=== PATIENT | male | born 1955 | race Caucasian/White ===

== ENCOUNTER → 2017-02-12 | Outpatient (CLI) | payer BC ==
[~2017-02-12] MED LIST: CHOL20009 PO; CIALIS PO; OXYC-57 PO; TADA5TAB11 PO; TRAM-10 PO
[2017-02-12 15:41] LABS: BASO % 0.6 %; BASO ABS # 0.04 K/uL (0-0.2); COMPLETE YES; EOS % 2.7 %; HEMATOCRIT 47.1 % (42-52); IG% 0.2 %; LYMPH % 25.2 %; LYMPH ABS # 1.59 K/uL (1.2-3.4); MEAN CELL VOLUME 92.2 fL (80-100); MEAN CORPUSCULAR HEMOGLOBIN 30.1 pg (25-34); MEAN CORPUSCULAR HGB CONC 32.7 g/dl (32-36); MEAN PLATELET VOLUME 10.5 fL (7.4-10.4); MONO % 9.7 %; NEUT % 61.6 %; PLATELET COUNT 117 K/uL (130-400); RED BLOOD COUNT 5.11 M/uL (4.7-6.1)
[2017-02-12 16:11] LABS: POTASSIUM 4.1 mmol/L (3.5-5.1)
== END | disposition home or self-care (01) ==
LOC: C.LAB 14:48
PROVIDERS: ATTEND Orthopaedic Surgery Sports Medicine
DX: Z01.810 Encounter for preprocedural cardiovascular examination (principal); Z01.812 Encounter for preprocedural laboratory examination; S46.319A Strain of muscle, fascia and tendon of triceps, unspecified arm, initial encounter; X58.XXXA Exposure to other specified factors, initial encounter; R00.1 Bradycardia, unspecified

== ENCOUNTER → 2017-02-12 | Outpatient (CLI) | payer BC ==
--- NOTE | 2017-02-12 13:50 | DIAGNOSTIC IMAGING REPORT ---
MRI THE RIGHT ELBOW NO CONTRAST CLINICAL HISTORY: Right elbow pain possible triceps rupture COMPARISON STUDY: No previous studies for comparison. FINDINGS: Imaging was performed in the axial, sagittal, and coronal planes. There are no suspicious areas of marrow replacement. There is a tear of the radial collateral ligament. There is mild edema within the triceps muscle. There is a partial thickness tear of the triceps tendon. There is a small joint effusion. IMPRESSION: 1. Partial-thickness tear of the triceps tendon. There is secondary edema within the triceps muscle. There is moderately extensive subcutaneous edema posteriorly. 2. Small joint effusion 3. Tear of the radial collateral ligament Electronically signed by: Farooq Ross M.D. 02/12/2017 1:49 PM Dictated Date/Time: 02/12/2017 1:41 PM
== END | disposition home or self-care (01) ==
LOC: C.MRIBC 11:26
PROVIDERS: ATTEND Orthopaedic Surgery Sports Medicine
DX: S46.311A Strain of muscle, fascia and tendon of triceps, right arm, initial encounter (principal); S53.431A Radial collateral ligament sprain of right elbow, initial encounter; M25.421 Effusion, right elbow; X58.XXXA Exposure to other specified factors, initial encounter

== ENCOUNTER → 2017-02-18 | Day surgery (SDC) | payer BC ==
[2017-02-16 10:18] VITALS: Ht 177.8 cm; Wt 97.7 kg
[~2017-02-18] VITALS: Ht 177.8 cm; Wt 97.7 kg
[~2017-02-18] MED LIST changes: +ATROPINE SULFATE 0.1 MG/ML 5ML SYR IV PRN; +BUPIVACAINE/EPINEPHRINE 0.5% MPF 1:200,000 30 ML VIAL ONE; +CEFAZOLIN 2000 MG/60 ML D5W IV SCH; +CEFAZOLIN SOD 1 GM VIAL ONE; +CEFAZOLIN SOD 1000MG/55 ML D5W IV ONE; -CIALIS PO; +DEXAMETHASONE SOD INJ 4 MG/ML VIAL ONE; +FENTANYL CITRATE INJ 50 MCG/1 ML 2 ML VIAL ONE; +GLYCOPYRROLATE INJ 0.2 MG/ML VIAL ONE; +HYDROmorphone INJ 1 MG/ML SYR IV PRN; +HYDROmorphone INJ 1 MG/ML SYR ONE; +HYDROmorphone INJ 2 MG/ML SYR/VIAL IV PRN; +KETOROLAC TROMETHAMINE 30 MG/ML VIAL IV. PRN; +KETOROLAC TROMETHAMINE 30 MG/ML VIAL ONE; +LABETALOL HCL IV 5 MG/ML 20ML IV PRN; +LACTATED RINGER'S 1000ML 1,000 ML IV SCH; +LIDOCAINE HCL 2% 2 ML VIAL (20MG/ML) ONE; +MIDAZOLAM HCL 1 MG/ML 2ML VIAL ONE; +NEOSTIGMINE METHYLSULFATE 5 MG/5 ML SYR ONE; +ONDANSETRON INJ 2 MG/ML 2 ML VIAL IV PRN; +ONDANSETRON INJ 2 MG/ML 2 ML VIAL ONE; +OXYCODONE/ACETAMINOPHEN 5-325 TAB PO PRN; +PROMETHAZINE HCL INJ 12.5 MG in SODIUM CHLORIDE 0.9% 50ML 50 ML IV PRN; +PROPOFOL IV EMULSION 10 MG/ML 20 ML VIAL IV ONE; +SODIUM CHLORIDE 0.9% 1000ML 1,000 ML IV SCH
--- NOTE | 2017-02-18 11:55 | History & Physical Bridge - [place] ---
H&P Re-Evaluation Bridge Note: I have examined the patient, reviewed the History & Physical and in the interval since the performance of the History & Physical I have noted the following changes of clinical significance: No changes noted
--- NOTE | 2017-02-18 13:14 | Discharge Instructions-SurgCtr ---
Discharge Instructions Date of Service February 18, 2017. Visit Reason for Visit: Right Triceps Tendon Rupture Discharge Discharge Diagnosis / Problem: right tricep tear Discharge Goals Goal(s): Improve function, Therapeutic intervention Activity Recommendations Activity Limitations: per Instructions/Follow-up section Anesthesia . Post Anesthesia Instructions: If you have had General Anesthesia or IV Sedation: * Do not drive today. * Resume driving when surgeon permits. * Do not make important decisions or sign legal documents today. * Call surgeon for: 1. Temperature elevations greater than 101 degrees F. 2. Uncontrollable pain. 3. Excessive bleeding. 4. Persistent nausea and vomiting. 5. Medication intolerance (nausea, vomiting or rash). * For nausea and vomiting use only clear liquids such as: tea, soda, bouillon until nausea subsides, then gradually increase diet as tolerated. * If you have any concerns or questions, call your surgeon's office. If physician is unavailable and it is an emergency, call 911 or go to the nearest emergency room. . Instructions / Follow-Up Instructions / Follow-Up MEDICATIONS: * Resume previous medications unless instructed otherwise by your surgeon. * Always take pain medication on a full stomach or with food to avoid upset stomach. * Do not drink alcohol or drive while taking narcotics. * Ibuprofen or Tylenol may be taken if narcotic not needed. SPECIAL CARE INSTRUCTIONS: __ None _x_ Keep extremity elevated and iced x 48 hours; apply ice 20-30 minutes 8-10 times/day. May remove at night. __ Sling __24 hrs/day __ Remove at night __ Shoulder Immobilizer __ 24 hrs/day __ Remove at night _x_ Dressing _x_ Maintain until seen in office, may shower with plastic over site __ Remove dressings in 24-48 hours and then may shower __ Cover incisions with band-aids after showering __ Do not remove steri-strips Call physician if chills or temperature rises above 102 degrees or pain unrelieved by prescribed pain medications at . . follow up in 2 weeks Diet Recommendations Home Diet: resume previous diet Procedures Procedures Performed: Right Triceps Tendon Repair Pending Studies Studies pending at discharge: no Medical Emergencies . Who to Call and When: Medical Emergencies: If at any time you feel your situation is an emergency, please call 911 immediately. . Non-Emergent Contact Non-Emergency issues call your: Surgeon . . "Provider Documentation" section prepared by Nic Vazquez. .
--- NOTE | 2017-02-18 13:21 | [facility] Post Operative Brief Note ---
Immediate Operative Summary Operative Date February 18, 2017. Pre-Operative Diagnosis Right Triceps Tendon Rupture Post-Operative Diagnosis Same Procedure(s) Performed Right Triceps Tendon Repair Surgeon Dr. Moore Bss Solution Architect Surgeon(s) Israel Vazquez PA-C Estimated Blood Loss 10 mL Findings Right Triceps Rupture Specimens None Drains None Anesthesia General Complication(s) None Disposition Recovery Room / PACU
[2017-02-18 14:42] VITALS: BP 135/79; PULSE 45; TEMP 36.5; O2SAT 96
--- NOTE | 2017-02-18 14:59 | Anesthesia Progress Nt - [facility] ---
Anesthesia Post Op Note Date & Time February 18, 2017 at 14:59 Vital Signs Pain Intensity: 2 Vital Signs Past 12 Hours Date Time Temp Pulse Resp B/P Pulse Ox O2 Delivery O2 Flow Rate FiO2 02/18/17 14:42 36.5 45 16 135/79 96 Room Air 02/18/17 14:11 44 16 160/90 98 Room Air 02/18/17 13:59 46 12 02/18/17 13:59 46 12 100 02/18/17 13:58 36.7 46 14 157/86 100 Room Air 02/18/17 13:56 157/86 02/18/17 13:54 46 13 02/18/17 13:54 45 13 100 02/18/17 13:51 138/98 02/18/17 13:49 60 9 100 02/18/17 13:49 59 9 02/18/17 13:46 160/93 02/18/17 13:44 50 11 02/18/17 13:44 50 11 100 02/18/17 13:41 143/85 02/18/17 13:39 51 10 02/18/17 13:39 49 10 100 02/18/17 13:36 144/86 02/18/17 13:34 58 14 02/18/17 13:34 59 14 100 02/18/17 13:31 158/85 02/18/17 13:29 59 14 02/18/17 13:29 59 14 100 02/18/17 13:26 147/81 02/18/17 13:24 62 13 02/18/17 13:24 59 13 100 02/18/17 13:21 155/78 02/18/17 13:20 165/84 02/18/17 13:19 37.0 73 14 165/84 100 Mask 6 02/18/17 10:48 36.8 44 16 141/80 97 Room Air Notes Mental Status: alert / awake / arousable, participated in evaluation Pt Amnestic to Procedure: Yes Nausea / Vomiting: adequately controlled Pain: adequately controlled Airway Patency, RR, SpO2: stable & adequate BP & HR: stable & adequate Hydration State: stable & adequate Anesthetic Complications: no major complications apparent
--- NOTE | 2017-02-19 06:21 | OPERATIVE REPORT ---
DATE OF OPERATION: 02/18/2017 SURGEON: Todd Moore MD BLENDING SUPERVISOR: AURE Sotelo PREOPERATIVE DIAGNOSIS: Right distal triceps structures. POSTOPERATIVE DIAGNOSIS: Same. PROCEDURE PERFORMED: Right distal triceps repair. COMPLICATIONS: None. ESTIMATED BLOOD LOSS: Minimal. TOURNIQUET TIME: 10 minutes at 250 mmHg. ANESTHESIA: General. SPECIMENS: None. OPERATIVE INDICATIONS: The patient is a 61-year-old very active, left hand dominant gentleman who injured his right triceps last week. He sustained a fall while mountain biking. He landed on an outstretched arm. He had acute onset of pain. He has had a history of multiple tendon ruptures in the past. He was seen in clinic and diagnosed with the distal triceps rupture. This was confirmed by MRI. The patient elected to proceed with the operative repair. OPERATIVE FINDINGS: Operative findings revealed distal triceps rupture. He still had some of the anterior fibers intact. The torn piece was retracted proximally and flipped on itself. The tendon itself was fairly degenerative in nature in addition: OPERATIVE PROCEDURE: The patient taken to the operating room, identified and placed on the operating table in supine position. All contact areas were appropriately padded. IV antibiotics were provided by anesthesia team. A general anesthetic was implemented by the anesthesia team. The patient was then placed in the left lateral decubitus position. An axillary roll was placed. A beanbag was used for positioning. The beanbag was deflated. A right arm tourniquet was then placed. The right arm was then prepped and draped in the usual sterile fashion. The right arm was elevated and exsanguinated with the use of an Esmarch and tourniquet was placed at 250 mmHg. A posterior approach to the elbow was then performed through a curvilinear incision which skirted around the lateral aspect of the tip of the olecranon. Sharp dissection was carried out through the subcutaneous tissues down to the level of the extensor mechanism in the elbow. Full thickness flaps were elevated. The torn triceps portion was easily identified. I exposed the proximal ulna distally to place a SwiveLock anchor. The anterior aspect of the triceps tendon was still attached, although the tendon was fairly degenerative in nature. I did not feel like I could do anything to make this any better. Therefore, I cleaned the soft tissue off the olecranon tip where the tendon had avulsed. I then placed 2 Arthrex suture tacks in the posterior tip of the olecranon. This was then fed through the triceps tendon that was torn and then these were tied down. I then took the sutures and I used a SwiveLock device to anchor these sutures about 3 cm distal to the tip of the olecranon. This helped provide an anatomic footprint repair of the triceps to the olecranon and the posterior tip of the olecranon. Once this was complete, I irrigated the wound extensively. I did repair some of the soft tissues over the triceps, which were degenerative and tried to repair tissues together to strengthen the tendon itself. I then closed the fascia on the dorsal aspect of the ulna with 0 Vicryl suture in a [id number] fashion. Of note, we did leave the tourniquet down before repairing the triceps to make sure all tension was off the triceps. Hemostasis was assured with use of electrocautery. I did inject locally with 30 mL of 0.5% Marcaine with epinephrine. The subcutaneous tissues were then closed with 2-0 Dexon suture in a buried interrupted fashion. Skin was closed with 4-0 nylon suture in a horizontal mattress fashion. The arm was then cleaned and dried and a sterile dressing with Xeroform, 4 x 4s, sterile cast padding and a posterior and anterior splint were applied with the elbow in about 30 degrees of flexion. The patient then brought out of general anesthesia and transferred to the recovery room in stable condition. The patient tolerated the procedure well with no complications. All needle and sponge counts were correct at the end of the operation. I attest to the content of the Intraoperative Record and any orders documented therein. Any exceptio ns are noted below.
== END | disposition home or self-care (01) ==
LOC: X.SURG 10:39
PROVIDERS: ATTEND Orthopaedic Surgery Sports Medicine
DX: S46.311A Strain of muscle, fascia and tendon of triceps, right arm, initial encounter (principal); V18.0XXA Pedal cycle driver injured in noncollision transport accident in nontraffic accident, initial encounter; Y93.55 Activity, bike riding; Z96.659 Presence of unspecified artificial knee joint; Z90.79 Acquired absence of other genital organ(s)